=== PATIENT | male | born 1985 | race Caucasian/White ===

== ENCOUNTER 2017-09-08 19:10 | Emergency (ER) | payer OTHER ==
[~2017-09-08] VITALS: Ht 172.7 cm; Wt 78.5 kg
[~2017-09-08 19:10] MED LIST: AUGMENTIN 875875 MG PO; NOHOMEMEDICATIONS
[2017-09-08 19:49] VITALS: BP 133/66
== END 2017-09-08 19:49 | disposition home or self-care (01) ==
LOC: M.ERS 19:10
DX: S66.912A Strain of unspecified muscle, fascia and tendon at wrist and hand level, left hand, initial encounter (principal); F10.99 Alcohol use, unspecified with unspecified alcohol-induced disorder; X58.XXXA Exposure to other specified factors, initial encounter; Y93.64 Activity, baseball; Y92.89 Other specified places as the place of occurrence of the external cause; Y99.8 Other external cause status

== ENCOUNTER 2021-05-25 18:51 | Emergency (ER) | payer OTHER ==
[~2021-05-25] VITALS: Ht 172.7 cm; Wt 74.8 kg
[2021-05-25] MEDS ORDERED: CILOXAN5 ML OPHTHALMIC (19:31)
[2021-05-25 19:45] VITALS: BP 138/78
== END 2021-05-25 19:46 | disposition home or self-care (01) ==
LOC: M.ERS 18:51
DX: S05.02XA Injury of conjunctiva and corneal abrasion without foreign body, left eye, initial encounter (principal); W22.8XXA Striking against or struck by other objects, initial encounter; Y93.89 Activity, other specified; Y92.89 Other specified places as the place of occurrence of the external cause; Y99.0 Civilian activity done for income or pay